=== PATIENT | female | born 1990 | race Caucasian/White ===

== ENCOUNTER → 2020-05-24 | Outpatient (CLI) | payer OTHER ==
[~2020-05-24] MED LIST: Flexeril; IBUP-1773 PO
--- NOTE | 2020-05-26 08:20 | Diagnostic Imaging Report ---
NAME: Erica Ricketts. : 1990. EXAMINATION: Pelvic ultrasound on 05/24/2020 at 10:21 AM. INDICATION: Secondary amenorrhea. FINDINGS: The uterus is anteverted measuring 8.5 x 4.3 x 4.4 cm. The endometrium is thickened measuring up to 2.2 cm. No myometrial mass is detected. The right ovary measures 3.6 x 3.9 cm and the overall visualization is somewhat limited. The left ovary measures 3.0 x 1.5 x 3.1 cm. No adnexal mass or free fluid is detected. IMPRESSION: Abnormally thickened endometrium of 2.2 cm. No other significant abnormality is detected. Dictated by: Dictated on workstation # [id number]
== END ==
LOC: RAD 09:31
PROVIDERS: ATTEND Obstetrics & Gynecology
DX: N91.1 Secondary amenorrhea (principal); N85.8 Other specified noninflammatory disorders of uterus
CPT/HCPCS: 76830; 76856

== ENCOUNTER 2021-09-19 09:26 | Day surgery (SDC) | payer OTHER ==
[~2021-09-19] VITALS: Ht 175.3 cm; Wt 168.2 kg
[2021-09-19] VITALS (11 sets, daily range): BP systolic 107–154; BP diastolic 63–87
[2021-09-19] MEDS ORDERED: LACTATED RINGERS 1,000 ML IV PRN (09:45)
[2021-09-19] MEDS ORDERED: ceFAZolin INJECTION 3,000 MG in NS (IVPB) 100 ML IV NR (09:45)
[2021-09-19] MEDS ORDERED: LISI1TAB44 PO (09:57)
[2021-09-19] MEDS ORDERED: LIRA0.6P SQ (09:57)
[2021-09-19] MEDS ORDERED: BUSP10TA95 PO (09:57)
[2021-09-19] MEDS ORDERED: HYDR-3820 PO (09:57)
[2021-09-19] MEDS ORDERED: LIDOCAINE/EPI 1%-1:200,000 (XYLOCAINE) 30 ML VIAL ONE (10:39)
[2021-09-19] MEDS ORDERED: MIDAZOLAM 2 MG/2 ML (VERSED) VIAL ONE (10:56)
[2021-09-19] MEDS ORDERED: fentaNYL INJ 250 MCG/5 ML AMP ONE ×2 (10:56→10:57)
[2021-09-19] MEDS ORDERED: fentaNYL INJ 100 MCG/2 ML AMP ONE (10:57)
[2021-09-19] MEDS ORDERED: ROCURONIUM 50 MG/5 ML (ZEMURON) VIAL IV ONE ×2 (11:38→12:15)
[2021-09-19] MEDS ORDERED: GLUCAGON EMERGENCY 1 MG/KIT ONE (11:43)
[2021-09-19] MEDS ORDERED: SUGAMMADEX 500 MG/5 ML VIAL (BRIDION) IV ONE (12:14)
[2021-09-19] MEDS ORDERED: LIDOCAINE PF 2% 5 ML (XYLOCAINE) VIAL ONE (12:15)
[2021-09-19] MEDS ORDERED: ONDANSETRON 4 MG/2 ML (SDV) Z0FRAN ONE (12:15)
[2021-09-19] MEDS ORDERED: proPOfol 200 MG/20 ML (DIPRIVAN) VIAL IV ONE (12:15)
[2021-09-19] MEDS ORDERED: SEVOFLURANE (ULTANE) 15 ML INHAL SOLN ONE (12:24)
--- NOTE | 2021-09-19 12:27 | Progress Note-Post Operative ---
Post-Operative Progess Note Surgeon (s)/Rotary Surface Grinder (s) Surgeon ELLIS ROB DO Rotary Surface Grinder: Girma Pre-Operative Diagnosis Acute Cholecystitis with CHOLELITHASIS Post-Operative Diagnosis Choledochalithiasis with acute cholecystitis and cholelithiasis Procedure & Operative Findings Date of Procedure 09/19/21 Procedure Performed/Findings Lap donovan with IOC and CBD exploration Anesthesia Type GET Estimated Blood Loss Estimated blood loss (mL): less than 20ml Specimens/Packing Specimens Removed GB and contents ELLIS ROB DO Sep 19, 2021 12:27
--- NOTE | 2021-09-19 12:32 | Discharge Inst-Surgical ---
Discharge Inst-Surgical Depart Medication/Instructions New, Converted or Re-Newed RX: Other (given Rx yesterday) Patient Instructions Follow up Appt: Make appointment for 1 week. [phone]. Make appt with GI at [place] for ERCP Instructions: No lifting greater than 20 pounds. No strenuous activity. May shower in 24 hours, no tub bath or soaking. Use incentive spirometer at home as directed. No Smoking Skin/Wound Care: May remove bandages in am. You need to leave the Dermabond on incision it will fall off on it's own. Symptoms to Report: Appetite Changes, Extremity Discoloration, Numbness/Tingling, Swelling Increased, Bleeding Excessive, Eyesight Changes, Pain Increased, Urine Color Change, Constipation(Persistent), Fever over 101 degree F, Pain/Pressure in chest, Urinating Difficulty, Cough Up/Vomit Blood, Heart Beat Irreg/Pounding, Pain/Pressure in jaw, Cramps in feet or legs, Lightheadedness, Pain/Pressure in shoulder, Diarrhea(Persistent), Memory Changes Suddenly, Questions/Concerns, Weight gain consecutive days, Dizziness/Fainting, Nausea/Vomiting, Shortness of Breath, Weight gain over 2 pounds If questions or concerns contact your physician Or seek help at emergency department. Activity Activity as Tolerated: Yes Activity Instructions: Avoid Stress to Incision Driving Instructions: No Driving/Refer to Diet Discharge Diet: Avoid Fatty Foods, Low Fat/Low Cholesterol Diet After 24 Hours: Clear Liquid if Nauseous If Any Problems/Questions/Issu: Contact Your Physician, Go to Emergency Room Skin/Wound Care Infection Signs and Symptoms: Increased Redness, Foul Odor of Wound, Increased Drainage, Skin Itchy or Has a Rash, Increased Swelling, Temperature Above 101 F Wound Care Comment: heating pad to shoulder or neck tonight for pain Bathing Instructions: Shower Stitches/Jamey/Dermabond Dis: Dermabond Ice Pack: Ice On and Off Site ELLIS ROB DO Sep 19, 2021 12:32
[2021-09-19] MEDS ORDERED: HYDROmorphone 2 MG/ML VIAL (DILAUDID) ONE (13:04)
--- NOTE | 2021-09-19 13:07 | Diagnostic Imaging Report ---
INDICATION: Cholecystectomy COMPARISON: None. FINDINGS: Fluoroscopic images of the biliary system were obtained. There is a filling defect in the distal common bile duct compatible with choledocholithiasis. IMPRESSION: Fluoroscopic time 45 seconds. Dictated by: Dictated on workstation # [id number]
--- NOTE | 2021-09-19 14:43 | Anesthesia-General Post-Op ---
General Patient Condition Mental Status/LOC: Same as Preop Cardiovascular: Satisfactory Nausea/Vomiting: Absent Respiratory: Satisfactory Pain: Controlled Complications: Absent Post Op Complications Complications None Follow Up Care/Instructions Patient Instructions None needed. Anesthesia/Patient Condition Patient Condition Patient is doing well, no complaints, stable vital signs, no apparent adverse anesthesia problems. No complications reported per nursing. ERNESTINA PEARSON CRNA Sep 19, 2021 14:43
--- NOTE | 2021-09-20 00:10 | OPERATIVE REPORT ---
DATE OF SERVICE: 09/19/2021 PREOPERATIVE DIAGNOSES: Acute cholecystitis, cholelithiasis. POSTOPERATIVE DIAGNOSES: Choledocholithiasis without obstruction with acute cholecystitis and cholelithiasis. PROCEDURES: 1. Laparoscopic cholecystectomy with intraoperative cholangiogram. 2. Common bile duct exploration. SURGEON: Fer Najera DO SEASONING SPRAYER: Juaquin Rayo DO. ANESTHESIA: General endotracheal tube. SPECIMEN: Gallbladder and contents. BLOOD LOSS: Less than 20 mL. FLUIDS: Per anesthesia. POSTOPERATIVE CONDITION: Stable. INDICATION FOR PROCEDURE: The patient is a 30-year-old female, who presented with severe abdominal pain, had an ultrasound done, which showed stones. FINDINGS: The patient had an almost necrotic gallbladder. She had fibrinous material around it. She had adhesions to it, was very distended and edematous. This is definitely an acute cholecystitis. Cholangiogram showed what looked like a possible stricture in the distal portion of the common bile duct and stones in the common bile duct, but not completely obstructed. PROCEDURE NOTE: After informed consent was obtained, the patient was brought to the operating room, placed on the operating table in supine position. She was sterilely prepped and draped in normal fashion. Local lidocaine was used to infiltrate the skin above the umbilicus. I made the incision with #11 blade, carried down through the skin into subcutaneous tissue, then deepened down to subcutaneous tissue with Bovie electrocautery down to the fascia. Fascia was incised with Bovie electrocautery, bluntly entered the abdomen, swept a finger around, placed 0 Vicryl [id number] suture and placed limited trocar port under direct visualization. Created pneumoperitoneum and then placed 3 more ports in normal fashion using local lidocaine, 11 blade for stab incision and Versed system, all done under direct visualization, 1 subxiphoid and 2 in the right upper quadrant. The patient was placed in reverse Trendelenburg and rotated left. There was omentum over the gallbladder and then we removed this, pulled this back we saw some fibrinous material and what looked to be the beginnings of necrotic gallbladder, removed this fibrinous material, gallbladder so distended and tense, had elected to make a small hole to drain this out. Once we were able to drain this out, then able to grasp the gallbladder and taken in superior direction, start dissecting out cystic duct and cystic artery, able to get around the cystic duct and cystic artery and placed one clip distally on the cystic artery and one proximally and then placed one clip distally on the cystic duct. Cut the cystic duct nursing home through Metzenbaum scissors. Placed a cholangiogram catheter and shot a cholangiogram. When we shot a cholangiogram, the cystic duct into the common bile duct and up into common hepatic and right and left hepatics. When we went down into the common bile duct, there appeared to be 2 stones and then a stricture, then just below this stricture, could see the beginning of the pancreatic duct started open and then another stone just before the ampulla. At this point, we then started an attempt to the common bile duct exploration. We placed a Reba balloon down the cystic duct and into the common bile duct and then blew up the balloon and tried to pull the stones back, could not get the stone to come out. We did this a couple times and then we placed the cholangiocatheter back in and shot a cholangiogram. We are actually able to get all the way into the small intestine and get a good dye. When we pulled it back, there were still noted the stones and stricture were still there. At this point, we elected to stop, remove the catheter. We then placed 3 clips on the cystic duct and then cut the cystic duct and cystic artery with Metzenbaum scissors, then started removing the gallbladder from bed of liver with L-hook cautery. We were coming across we encountered a posterior branch of the cystic artery. This was clipped and then continued to take the gallbladder off. There was a lot of edema around the gallbladder, able to completely remove the gallbladder and then placed a bag in the abdomen, placed the gallbladder in the bag and then removed this through a supraumbilical incision. Copiously irrigated with normal saline. There was no bleeding at the end of the case. Pictures taken. At this point, she was placed supine, removed all ports under direct visualization, allowed pneumoperitoneum to escape, closed the supraumbilical incision with 0 Vicryl suture previously placed. Irrigated incisions and closed the three small 5 mm incisions with single interrupted 4-0 undyed Monocryl subcuticular stitch, closed supraumbilical incision with 3 interrupted 4-0 undyed Monocryl subcuticular stitches. Because her enzymes were elevated and was not completely obstructed, I called GI to get her ERCP as an outpatient next 1 or 2 days. The patient transferred to recovery room in stable condition. Sponge, instrument and needle count correct at the end of the case. Dr. Rayo assisted in this case helping to make incisions, close incisions, identify anatomy, hold anatomy out of the way and helped with the attempted common bile duct exploration for removal of stones. Job ID: [id number] DocumentID: [id number] Dictated Date: 09/19/2021 16:44:46 Security System Technician Date: 09/20/2021 00:10:42 Dictated By: FER NAJERA DO
== END 2021-09-19 14:55 | disposition home or self-care (01) ==
LOC: SDC 09:26
PROVIDERS: ATTEND Surgery
DX: K80.66 Calculus of gallbladder and bile duct with acute and chronic cholecystitis without obstruction (principal); K76.89 Other specified diseases of liver; I10 Essential (primary) hypertension; E11.9 Type 2 diabetes mellitus without complications; E66.01 Morbid (severe) obesity due to excess calories; F41.9 Anxiety disorder, unspecified; F32.A Depression, unspecified; Z79.1 Long term (current) use of non-steroidal anti-inflammatories (NSAID); Z79.84 Long term (current) use of oral hypoglycemic drugs; Z79.899 Other long term (current) drug therapy; Z79.891 Long term (current) use of opiate analgesic; Z68.43 Body mass index [BMI] 50.0-59.9, adult
CPT/HCPCS: 76000; 84703; 87081; 88304